=== PATIENT | male | born 1995 | race Caucasian/White ===

== ENCOUNTER 2024-05-03 21:56 | Emergency (ER) | payer OTHER ==
[~2024-05-03] VITALS: Ht 182.9 cm; Wt 72.3 kg
[2024-05-04] MEDS: LIDOCAINE 2% MDV 20ML VIAL SC ONE (02:00)
[2024-05-04] MEDS: BOOSTRIX VACCINE (TETANUS/DIPHTH/ACEL. PERTUSSIS) 0.5ML SYR IM.IMMUN ONE (02:30)
[2024-05-04 02:33] VITALS: BP 132/74; TEMP 98; O2SAT 98
== END 2024-05-04 02:36 | disposition home or self-care (01) ==
LOC: M ED 21:56
DX: S01.01XA Laceration without foreign body of scalp, initial encounter (principal); W22.8XXA Striking against or struck by other objects, initial encounter; Y92.9 Unspecified place or not applicable; Y93.89 Activity, other specified; Y99.1 Military activity; Z23 Encounter for immunization